=== PATIENT | female | born 2000 ===

== ENCOUNTER 2022-11-13 21:39 | Emergency (ER) | payer OTHER ==
[~2022-11-13] VITALS: Ht 160 cm; Wt 54.4 kg
[2022-11-13 21:56] VITALS: BP 165/102
== END 2022-11-14 00:55 | disposition home or self-care (01) ==
LOC: ER 21:39
DX: T16.1XXA Foreign body in right ear, initial encounter (principal); X58.XXXA Exposure to other specified factors, initial encounter
CPT/HCPCS: 69200; 99282-25